=== PATIENT | female | born 1985 | race Caucasian/White ===

== ENCOUNTER 2018-01-10 19:57 | Emergency (ER) | payer SELFPAY ==
[2018-01-10 19:58] VITALS: BP 117/93; PULSE 91; RESP 16; TEMP 36.5; O2SAT 96; BMI 26.4
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
[2018-01-10 21:46] VITALS: BP 100/53; PULSE 73; RESP 18; O2SAT 99
[2018-01-10 22:49] VITALS: BP 95/51; PULSE 74; RESP 18; O2SAT 95
== END 2018-01-10 22:50 | disposition home or self-care (01) ==
PROVIDERS: Emergency Provider Emergency Medicine
DX: T40.1X1A Poisoning by heroin, accidental (unintentional), initial encounter (principal); Y92.810 Car as the place of occurrence of the external cause; Z72.0 Tobacco use
CPT/HCPCS: 99285

== ENCOUNTER 2018-06-04 17:42 | Emergency (ER) | payer MEDICAID, SELFPAY ==
[2018-06-04 17:44] VITALS: BP 112/63; PULSE 79; RESP 12; TEMP 35.9; O2SAT 100
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
[2018-06-04] MEDS: Naproxen 500 MG Tablet PO (18:16)
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
== END 2018-06-04 18:50 | disposition home or self-care (01) ==
PROVIDERS: Emergency Provider Emergency Medicine
DX: S16.1XXA Strain of muscle, fascia and tendon at neck level, initial encounter (principal); S80.02XA Contusion of left knee, initial encounter; S60.212A Contusion of left wrist, initial encounter; V89.2XXA Person injured in unspecified motor-vehicle accident, traffic, initial encounter; Y93.9 Activity, unspecified; Y92.9 Unspecified place or not applicable; Y99.9 Unspecified external cause status; Z72.0 Tobacco use
CPT/HCPCS: 73110; 73562; 99283

== ENCOUNTER 2021-01-27 16:56 | Inpatient (IN) | payer OTHER, SELFPAY ==
[2021-01-27 16:57] VITALS: BP 128/82; PULSE 72; RESP 18; TEMP 36.1; O2SAT 96; BMI 33.0
[2021-01-27 18:38] LABS: Absolute Neutrophil Count 3.7 X10^3/uL (2.0-7.7); Basophil# 0.02 X10^3/uL; Basophil% 0.3 % (0-1); Eosinophil# 0.03 X10^3/uL; Eosinophils% 0.5 % (0-5); Hematocrit 43.9 % (37-47); Hemoglobin 14.4 g/dL (12.0-15.0); Mean Corp Hgb Conc 32.8 g/dL (32-36); Mean Corpuscular Hgb 28.6 pg (27.0-32.0); Mean Corpuscular Volume 87.1 fL (81-99); Mean Platelet Vol. 9.2 fl (6.2-12.0); Monocyte# 0.43 X10^3/uL; Monocyte% 6.9 % (0-10); NRBC Flagged by Analyzer 0 % (0-5); Neutrophil # 3.74 X10^3/uL (2.7-7.7); Neutrophil % 59.8 % (47-70); Platelet Count 217 K/mm3 (150-450); RBC Distribution Width CV 13.6 % (11.6-14.6); RBC Distribution Width SD 43.4 fl (35.1-43.9); Red Blood Count 5.04 M/mm3 (4.2-5.4); White Blood Count 6.3 K/mm3 (4.4-11.0)
[2021-01-27 18:55] LABS: Anion Gap 2 (5-15); BUN 9 mg/dL (7-18); BUN/Creat Ratio 12.1 RATIO (10-20); Calcium,Total 8.7 mg/dL (8.5-10.1); Chloride 109 mmol/L (98-107); Creatinine, Serum 0.75 mg/dL (0.55-1.02); EST Glomerular Filtration Rate 94 mL/min (>60); Est Glom Filt Rate - Afr Amer 114 mL/min (>60); Estimated Creatinine Clearance 98.94 ml/min; Glucose 100 mg/dL (74-106); Potassium 3.6 mmol/L (3.5-5.1); Sodium Level 139 mmol/L (136-145)
--- NOTE | 2021-01-27 19:26 | ED.VIS.GI ---
HPI HPI - GI History of Present Illness Chief Complaint: Abd Pain Detail of Chief Complaint: Abdominal pain that started about 6 hours ago Informant: patient Abdominal Pain/Flank Pain Maximum Severity: 10/10 Narrative Narrative: To the emergency department complaint of abdominal pain that started 6 hours ago. Patient describes some nausea but no vomiting. She rates her pain a 10 out of 10 currently. Patient states that she was diagnosed with Covid 6 days ago because her 5-year-old tested positive so she had herself tested. Patient only started having symptoms for 5 days ago. She had been doing relatively well until today. Patient states that she started her menstrual period today with some spotting this morning. She typically does not have painful periods. No history of kidney stones. Patient's not had fever. She denies urinary symptoms. PFSH PFSH Medical History no medical history Home Medications naproxen 500 mg PO BID PRN #20 tab 06/04/18 [Rx Last Taken Unknown] etonogestrel [Nexplanon] 68 mg SUBDERMAL DAILY 01/27/21 [History Last Taken Unknown] Allergy/AdvReac Type Severity Reaction Status Date / Time No Known Allergies Allergy Verified 01/27/21 17:00 Social History Smoking Status: Never smoker ROS ROS ED Constitutional Constitutional ED: Reports systems reviewed and no addt'l complaints, except as documented; Denies body ache(s), change in weight or chills Eyes Eyes: Denies acute decrease in peripheral vision, change in vision, double vision or loss of vision ENT ENT ED: Reports none; Denies ear pain, lip swelling, loss taste/smell, neck pain, otalgia or sore throat Cardiovascular Cardiovascular: Reports none; Denies abdominal pain, chest pain with activity, leg edema, lightheadedness, palpitations, rapid heart rate or syncope Respiratory/Chest Respiratory/Chest: Reports none; Denies change in mental status, dry cough, dyspnea, hemoptysis, shortness of breath at rest or shortness of breath with exertion Gastrointestinal Gastrointestinal: Reports abdominal pain and nausea Genitourinary Genitourinary ED: Reports none; Denies abdominal discomfort, anuria, dysuria, genital pain or polyuria Musculoskeletal Musculoskeletal: Reports none; Denies arthralgias, back pain, difficulty walking, extremity pain, muscle weakness or myalgias Integumentary Reports none; Denies abscess or rash Neurologic Neurologic: Reports none; Denies abnormal gait, confusion, focal weakness, frequent falls, headache(s), loss of vision, numbness, paresthesias, radicular pain, vertigo or weakness Psychiatric Psychiatric: Reports systems reviewed and no addt'l complaints, except as documented and none; Denies behavioral changes, confusion, difficulty concentrating, hallucinations, suicidal ideation, tactile hallucinations or visual hallucinations Endocrine Endocrinology: Denies none, cold intolerance, excessive sweating, fatigue or heat intolerance Hematologic/Lymphatic Hematologic/Lymphatic: Reports none; Denies anemia, easy bleeding or easy bruising Allergic/Immunologic Allergic/Immunologic ED: Denies as per HPI, none, lip swelling, mouth swelling, throat swelling, tongue swelling or hives EXAM Physical Exam Const Vital Signs: 01/27/21 16:57 01/27/21 21:53 Temperature 97.0 F L Temperature Source Temporal Pulse Rate 72 Respiratory Rate 18 Blood Pressure 128/82 H Blood Pressure Mean 97 Pulse Ox 96 97 Oxygen Delivery Method Room Air Room Air Positive well nourished and well developed General Appearance ED: well developed and NAD HEENT Reports TM's clear and moist mucous membranes normocephalic and atraumatic; Negative for trauma or tenderness Tympanic Membrane ED: Yes TM's clear Eyes PERRL and EOMs intact bilaterally General Eye ED: Negative for pale conjunctiva or scleral icterus Neck no lymphadenopathy, supple and no JVD General: Negative for tenderness Chest Wall inspection of chest normal and palpation of chest normal Chest: Negative for tenderness Resp normal respiratory effort and clear to auscultation bilaterally Effort and Inspection: Negative for respiratory distress or pain with movement Auscultation: Negative for rhonchi, wheezes or diminished lung sounds Cardio regular rate, regular rhythm, S1 normal heart sound, S2 normal heart sound and no murmurs Peripheral Pulses: pulses 2+ throughout GI normal to inspection, nondistended, normoactive bowel sounds, soft to palpation, non-tender, non-distended and no masses GI Narrative: Patient has tenderness palpation of the right lower quadrant with some guarding. There is no rebound, rigidity, or peritoneal signs. Patient also with some mild tenderness over the epigastric region. Palpation: tender Back/Spine no CVA tenderness and no thoracic nor lumbar tenderness Extremity normal to inspection General Extremety ED: Negative for edema General Extremity: Negative for edema Neuro oriented x3, CN's II-XII intact bilaterally, no sensory deficits noted and gait normal Sensorium / Orientation: awake, alert, oriented to person, oriented to place and oriented to time Motor Exam: strength 5/5 throughout and strength abnormal Psych mental status grossly normal Skin no rashes or lesions noted and no wounds MDM MDM MDM Narrative Medical decision making narrative: Patient was medicated with morphine and Zofran on arrival. Patient had an IV line established and was given normal saline. Results case with patient. Also discussed case with general surgeon on-call Dr. Blanco. Will discuss case with hospitalist who will evaluate patient for admission. There is concern for inflammatory bowel disease with thickening of the cecum and inflammatory changes noted. Patient also has a right adnexal 4 cm cyst. Lab Data Attestation: I reviewed the patient's lab results. Labs: Laboratory Results - last 24 hr 01/27/21 01/27/21 01/27/21 18:25 18:25 19:55 WBC 6.3 RBC 5.04 Hgb 14.4 Hct 43.9 MCV 87.1 MCH 28.6 MCHC 32.8 RDW Std Deviation 43.4 RDW Coeff of Davis 13.6 Plt Count 217 MPV 9.2 Immature Gran % (Auto) 0.500 Neut % (Auto) 59.8 Lymph % (Auto) 32.0 Charles % (Auto) 6.9 Eos % (Auto) 0.5 Baso % (Auto) 0.3 Absolute Neuts (auto) 3.7 Absolute Lymphs (auto) 2.00 Nucleated RBC % 0 Sodium 139 Potassium 3.6 Chloride 109 H Carbon Dioxide 28.0 Anion Gap 2 L BUN 9 Creatinine 0.75 Estim Creat Clear Calc 98.94 Est GFR (MDRD) Af Amer 114 Est GFR (MDRD) Non-Af 94 BUN/Creatinine Ratio 12.1 Glucose 100 Lactic Acid Calcium 8.7 Total Bilirubin 0.40 Direct Bilirubin 0.12 AST 26 ALT 50 Alkaline Phosphatase 106 Total Protein 7.2 Albumin 3.5 Globulin 3.7 Serum , Qual 01/27/21 01/27/21 19:55 19:55 WBC RBC Hgb Hct MCV MCH MCHC RDW Std Deviation RDW Coeff of Davis Plt Count MPV Immature Gran % (Auto) Neut % (Auto) Lymph % (Auto) Charles % (Auto) Eos % (Auto) Baso % (Auto) Absolute Neuts (auto) Absolute Lymphs (auto) Nucleated RBC % Sodium Potassium Chloride Carbon Dioxide Anion Gap BUN Creatinine Estim Creat Clear Calc Est GFR (MDRD) Af Amer Est GFR (MDRD) Non-Af BUN/Creatinine Ratio Glucose Lactic Acid 0.6 Calcium Total Bilirubin Direct Bilirubin AST ALT Alkaline Phosphatase Total Protein Albumin Globulin Serum , Qual NEGATIVE Radiography Diagnostic Testing: Radiology Impression Abdomen/Pelvis CT 01/27/21 21:10 IMPRESSION: Diffuse wall thickening of the terminal ileum and proximal cecum with mild associated stranding may represent an inflammatory process. 4 cm right adnexal cyst. Normal appendix. Hypoechoic focus left liver is incompletely characterized. Consider follow-up liver ultrasound. Electronically Signed: Elías Perry MD at 21:53 EDT Tel , Service support , Discharge Plan Triage Chief Complaint: Abd Pain ED Provider: Kulwinder Anaya Dx/Rx/DC Orders Clinical Impression: Intractable abdominal pain, Ovarian cyst, Bowel disease, inflammatory Prescriptions: No Action naproxen 500 MG tablet 500 mg PO BID PRN Qty: 20 RF: 0 Nexplanon 68 mg Implant 68 mg SUBDERMAL DAILY RF: 0 Primary Care Provider: Care Physician,No Primary Referrals: Care Physician,No Primary [Primary Care Provider] - Disposition Disposition: Acute Care [facility]
[2021-01-27] MEDS: Morphine 4 MG/ML Syringe IV ×2 (19:36→23:29)
[2021-01-27] MEDS: Ondansetron 4 MG/2 ML Vial IV (19:36)
[2021-01-27 20:26] LABS: AST(SGOT) 26 U/L (15-37); Alanine Aminotransfer ALT/SGPT 50 U/L (13-56); Albumin, Serum 3.5 g/dL (3.2-5.0); Alkaline Phosphatase 106 U/L (45-117); Bilirubin, Direct 0.12 mg/dL (0.00-0.30); Globulin 3.7 g/dL (2.2-4.2); Protein, Total 7.2 g/dL (6.4-8.2)
[2021-01-27 20:28] LABS: Internal QC Validated? YES +Cl - CLEAR BKGD; Pregnancy, Serum, hCG Quali. NEGATIVE Negative
[2021-01-27 21:02] LABS: Lactic Acid 0.6 mmol/L (0.4-1.9)
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
[2021-01-27 21:53] VITALS: O2SAT 97
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
[2021-01-27 23:38] VITALS: BP 138/71; PULSE 74; RESP 16; TEMP 36.9; O2SAT 98
[2021-01-28] VITALS (8 sets, daily range): BP systolic 122–141; BP diastolic 51–77; PULSE 55–72; RESP 14–20; TEMP 36.6–36.9; O2SAT 94–98; BMI 35.2
[2021-01-28 00:10] LABS: BNP,B-Type NATRIURETIC PEPTIDE 7.3 pg/mL (0-100)
[2021-01-28 00:13] LABS: CRP 6.42 mg/L (0.0-3.0); Ferritin 39 ng/mL (8-252); LDH 194 U/L (84-246)
[2021-01-28 00:28] LABS: Procalcitonin < 0.04 ng/mL (0.00-0.09)
[2021-01-28] MEDS: proCHLORPERazine 10 MG/2 ML Vial 5 MG IV (00:39)
[2021-01-28] MEDS: 0.9% Normal Saline 1,000 ML 125 ML IV ×2 (00:39→08:52)
[2021-01-28] MEDS: 0.9% Saline Lock 10 ML Syringe IV (00:39)
[2021-01-28 01:08] LABS: D-Dimer Quantitative (DVT/PE) < 0.27 FEU/ug/m (0.27-0.49)
--- NOTE | 2021-01-28 05:55 | US_ITS ---
STUDY: ABDOMINAL ULTRASOUND - RIGHT UPPER QUADRANT REASON FOR VISIT: Female, 35 years old Incidental hypoechoic focus left liver -- pt NPO - 11am scan time TECHNIQUE: Ultrasound evaluation of the right upper quadrant was performed with real-time and static lopez-scale imaging. TECHNICAL QUALITY: Adequate. COMPARISON: Comparison is made with prior CT scan of the abdomen dated 01/27/2021. FINDINGS: Liver: The liver measures 17.2 cm. There is increased echogenicity consistent with fatty infiltration. The bile ducts are within normal limits. There is hepatic color flow. The direction of portal flow is hepatopetal. There is a 1 cm x 1.3 cm x 1.2 cm slightly echogenic nodule in the left lower liver suggestive of a small hemangioma. Gallbladder: Normal distended gallbladder. The gallbladder wall measures 2.8 mm. There is a negative sonographic Watts''s sign. There is no pericholecystic fluid. There are no gallstones. Common Bile Duct (C.B.D.): The common bile duct measures 2.6 mm. Pancreas: Normal size of the head, body and tail of the pancreas. There is normal echogenicity of the pancreas. There is no demonstrated pancreatic mass or cyst. Right Kidney: Normal size of the right kidney. The right kidney measures 11.6 cm x 6.4 cm x 6.3 cm. Normal renal cortex. The right cortex measures 1.3 cm. There is no demonstrated renal mass or cyst. There is no right hydronephrosis. US/Liver IMPRESSION: Fatty eventration of the liver. Findings suggestive of a 1 cm x 1.3 cm x 1.2 cm hemangioma in the left lobe of the liver. Electronically Signed: Didier Parada MD at 14:58 EDT , Service support ,
[2021-01-28 06:59] LABS: Absolute Lymphocyte Count 0.96 X10^3/uL (0.83-4.51); Absolute Neutrophil Count 4.6 X10^3/uL (2.0-7.7); Basophil# 0.02 X10^3/uL; Basophil% 0.3 % (0-1); Hematocrit 43.5 % (37-47); Hemoglobin 14.3 g/dL (12.0-15.0); Lymphocyte # 0.96 X10^3/ul (0.83-4.51); Lymphocyte % 16.7 % (19-41); Mean Corp Hgb Conc 32.9 g/dL (32-36); Mean Corpuscular Hgb 28.4 pg (27.0-32.0); Mean Corpuscular Volume 86.5 fL (81-99); Mean Platelet Vol. 9.7 fl (6.2-12.0); Monocyte% 1.7 % (0-10); NRBC Flagged by Analyzer 0 % (0-5); Neutrophil # 4.64 X10^3/uL (2.7-7.7); Platelet Count 207 K/mm3 (150-450); RBC Distribution Width CV 13.4 % (11.6-14.6); RBC Distribution Width SD 41.9 fl (35.1-43.9); Red Blood Count 5.03 M/mm3 (4.2-5.4); White Blood Count 5.7 K/mm3 (4.4-11.0)
[2021-01-28 07:33] LABS: ALB/GLOB Ratio 0.9 RATIO (0.9-2.4); AST(SGOT) 24 U/L (15-37); Alanine Aminotransfer ALT/SGPT 47 U/L (13-56); Albumin, Serum 3.3 g/dL (3.2-5.0); Alkaline Phosphatase 106 U/L (45-117); Anion Gap 4 (5-15); BUN 7 mg/dL (7-18); BUN/Creat Ratio 11.4 RATIO (10-20); Calcium,Total 8.7 mg/dL (8.5-10.1); Chloride 109 mmol/L (98-107); Creatinine, Serum 0.61 mg/dL (0.55-1.02); EST Glomerular Filtration Rate 118 mL/min (>60); Est Glom Filt Rate - Afr Amer 143 mL/min (>60); Estimated Creatinine Clearance 121.65 ml/min; Globulin 3.8 g/dL (2.2-4.2); Glucose 149 mg/dL (74-106); Potassium 4.1 mmol/L (3.5-5.1); Protein, Total 7.1 g/dL (6.4-8.2); Sodium Level 137 mmol/L (136-145)
[2021-01-28] MEDS: Enoxaparin 30 MG/0.3 ML Syringe SC (08:54)
[2021-01-28] MEDS: Famotidine 20 MG Tablet PO (08:54)
--- NOTE | 2021-01-28 10:04 | CASEMGMT ---
OBDULIO MATTHEWS Assessment: Face to Face with pt for initial transition planning/care coordination assessment. OBDULIO MATTHEWS introduced self and role at [facility], pt voices understanding and consents to assessment. Pt is A/O x4 and answers all questions appropriately at this time. Pt lying in bed on RA in no distress. Care providers, pharmacy, and demographics verified/updated. Admitting Dx: COVID, Intractable abd pain PCP: Pt denies having a PCP. Provided pt with a healthcare directory of local physicians. Specialists: Pt denies. Preferred Pharmacy: [facility] Gurpreet Insurance: [employer] Prescription Benefit: yes LW/HPOA: Pt denies having a LW/DPOA and denies need for info regarding AD. LNOK: Yana Baig, mother; Atul Baig, father Living Arrangements: Pt lives with 5 year old child in a single story house with 2 steps to enter. Pt reports being I in ADL's and denies concerns at home. Transportation: Pt drives self and denies concerns with transportation. DME/HHC: Pt denies having any DME in the home and no hx of HHC. Pt states she was tested first for COVID at [facility]. Pt states her boris father is staying with the child in her home while she is in the hospital. Pt has called [employer] yesterday and was delivered food. Pt states she is set with groceries and supplies for now. 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 She has a history of substance abuse but is now 4 years clean. Pt states she uses medical cannibus. She drinks 4-5 shots of liquor on the weekends. Pt denies cigarette use, street drugs or illegal drugs. Pt states no concerns with going home at time of dc. Pt states no further concerns/needs. CM to follow. Advised pt to ask CM if any further question/concerns/needs arise, voices understanding. Pt Goal: Home Plan: Home
--- NOTE | 2021-01-28 12:09 | CON.PCM.SX_ITS ---
Assessment & Plan Assessment/Plan (1) Ovarian cyst: QUALIFIERS: Laterality: right Qualified Code(s): N83.201 - Unspecified ovarian cyst, right side PLAN: Patient has just started her menstrual cycle and her exam is most consistent with pain originating from this CT finding rather than the possible thickening of the terminal ileum and proximal cecum. In review of the patient's CT scan this latter region actually lies deep to her periumbilical region and not in the right lower quadrant as would be normally expected. This is because a significant portion of her small bowel has flopped over her ascending colon. Given both the temporal and anatomical correlations I suspect her pain is from this area. I do not see need for an inpatient consult of gynecology but have strongly recommended patient follow-up with her propagator when she is out of the hospital for this issue. (2) Bowel wall thickening: PLAN: The bowel wall thickening colon on CT seems to be more product of underfilling of the small intestine at this location. The contrast did reach the small bowel but not to the level of the terminal ileum. Based on exam I am not convinced that this is the source of the patient's abdominal pains. Furthermore, the patient does not describe any GI symptoms that would be associated with such a radiographic finding. Therefore, in the absence of any other indication to keep the patient n.p.o. this afternoon I would like to begin a diet challenge. Additionally, given the lower suspicion for an inflammatory bowel process would stop all steroid therapy. (3) Intractable abdominal pain: PLAN: Patient's abdominal pain has abated and she now has some tenderness with palpation of the right lower quadrant over the area where the right adnexal cyst would reside. We will follow up patient's tolerance of the diet this afternoon. HPI Consult Data Date of Consult: 01/28/21 HPI Narrative HPI Narrative: LEYDA BAIG, is a 35 F who presents to [facility] with complaints of sudden?onset abdominal pain yesterday at approximately 1400. She denied any associated nausea or vomiting. Her bowel habits have been normal including a normal bowel movement yesterday. He reports that she was diagnosed with Covid in the last 1 week and also began her menstrual cycle over the last 1 day. Her ED work-up was notable for chemistries showing relatively normal CBC but CT imaging that showed evidence of possible thickening of the terminal ileum and cecum. There is also a 4 cm right adnexal cyst. Patient states that her symptoms are much improved this morning and she is quite hungry. She has some residual soreness on her right but the pain from yesterday has resolved. Historically Ms. Sheets does not have pain with menstruation. She does state that she has experienced some bleeding following intercourse and questions whether this may be related to her ovarian cyst. She states that since the delivery of her last child she has not followed routinely with her propagator but made occasional nurse visits. From a GI perspective, Mrs. Baig denies any personal of GI malignancies or GI diagnoses including inflammatory bowel disease but from a familial perspective she does relate that her father has been evaluated for rectal bleeding and has required 4 colonoscopies in the last 4 months. [facility] Medical History (Updated 01/28/21 @ 12:[address] Kumar Blanco MD) Alcohol consumption binge drinking Anxiety Depression Marijuana abuse PTSD (post-traumatic stress disorder) Medical History no medical history Home Medications etonogestrel [Nexplanon] 68 mg SUBDERMAL . 01/27/21 [History Last Taken Unknown] Allergy/AdvReac Type Severity Reaction Status Date / Time No Known Allergies Allergy Verified 01/27/21 17:00 Family History no significant family his Surgical History (Updated 01/28/21 @ 00:[address] Pattie Coe MD) No significant past surgical history Social History (Updated 01/28/21 @ 00:[address] Pattie Coe MD) household members: children Smoking Status: Never smoker alcohol intake: current alcohol intake frequency: a few times a week substance use type: marijuana Physical Exam Const General Appearance: cooperative and comfortable Resp normal respiratory effort GI soft to palpation Inspection: Negative for visible herniation Palpation: soft and tender RLQ (No rebound tenderness) Lab / Micro Data Result Diagrams: 01/28/21 06:35 01/28/21 06:35 Labs: Laboratory Results - last 24 hr 01/27/21 18:25: WBC 6.3, RBC 5.04, Hgb 14.4, Hct 43.9, MCV 87.1, MCH 28.6, MCHC 32.8, RDW Std Deviation 43.4, RDW Coeff of Davis 13.6, Plt Count 217, MPV 9.2, Immature Gran % (Auto) 0.500, Neut % (Auto) 59.8, Lymph % (Auto) 32.0, [place] % (Auto) 6.9, Eos % (Auto) 0.5, Baso % (Auto) 0.3, Absolute Neuts (auto) 3.7, Absolute Lymphs (auto) 2.00, Nucleated RBC % 0 01/27/21 18:25: Sodium 139, Potassium 3.6, Chloride 109 H, Carbon Dioxide 28.0, Anion Gap 2 L, BUN 9, Creatinine 0.75, Estim Creat Clear Calc 98.94, Est GFR (MDRD) Af Amer 114, Est GFR (MDRD) Non-Af 94, BUN/Creatinine Ratio 12.1, Glucose 100, Calcium 8.7 01/27/21 18:25: Ferritin 39, Lactate Dehydrogenase 194, C-React Prot Ext Range 6.42 H 01/27/21 18:25: B-Natriuretic Peptide 7.3 01/27/21 18:25: Procalcitonin < 0.04 01/27/21 19:55: Total Bilirubin 0.40, Direct Bilirubin 0.12, AST 26, ALT 50, Alkaline Phosphatase 106, Total Protein 7.2, Albumin 3.5, Globulin 3.7 01/27/21 19:55: Lactic Acid 0.6 01/27/21 19:55: Serum , Qual NEGATIVE 01/27/21 23:50: D-Dimer Quant (PE/DVT) < 0.27 L 01/28/21 06:35: WBC 5.7, RBC 5.03, Hgb 14.3, Hct 43.5, MCV 86.5, MCH 28.4, MCHC 32.9, RDW Std Deviation 41.9, RDW Coeff of Davis 13.4, Plt Count 207, MPV 9.7, Immature Gran % (Auto) 0.300, Neut % (Auto) 81.0 H, Lymph % (Auto) 16.7 L, [place] % (Auto) 1.7, Eos % (Auto) 0.0, Baso % (Auto) 0.3, Absolute Neuts (auto) 4.6, Absolute Lymphs (auto) 0.96, Nucleated RBC % 0 01/28/21 06:35: Sodium 137, Potassium 4.1, Chloride 109 H, Carbon Dioxide 24.0, Anion Gap 4 L, BUN 7, Creatinine 0.61, Estim Creat Clear Calc 121.65, Est GFR (MDRD) Af Amer 143, Est GFR (MDRD) Non-Af 118, BUN/Creatinine Ratio 11.4, Glucose 149 H, Calcium 8.7, Total Bilirubin 0.20, AST 24, ALT 47, Alkaline Phosphatase 106, Total Protein 7.1, Albumin 3.3, Globulin 3.8, Albumin/Globulin Ratio 0.9 Radiology Impression Abdomen/Pelvis CT 01/27/21 21:10 IMPRESSION: Diffuse wall thickening of the terminal ileum and proximal cecum with mild associated stranding may represent an inflammatory process. 4 cm right adnexal cyst. Normal appendix. Hypoechoic focus left liver is incompletely characterized. Consider follow-up liver ultrasound. Electronically Signed: Elías Perry MD at 21:53 EDT Tel , Service support , Charges/Coding Visit Charges Inpatient E&M: 96676 Init Hosp L2
[2021-01-28] MEDS: Acetaminophen 325 MG Tablet 650 MG PO (12:35)
--- NOTE | 2021-01-28 16:28 | DCINST_ITS ---
Discharge Instructions Diet Discharge Diet: No restrictions Activity Discharge Activity: Return to Normal Activity Follow Up Care Test Results: Test results from this visit will be discussed in further detail at your follow-up appointment, if applicable. Discharge Plan Admission Admit Date/Time: 01/27/21 23:15 Primary Reason for Your Visit: Abdominal pain, Acute COVID-19 infection Attending Provider: Yesika Johnson Primary Care Provider: Care Physician,No Primary Consulting Providers: Kumar Blanco Instructions Additional Instructions / Restrictions: Continue to use your incentive spirometer. Continue to keep yourself hydrated. Follow-up with your warehouse pricing and inventory clerk within a month. Discharge Orders/Prescriptions Prescriptions: Continued Nexplanon 68 mg Implant 68 mg SUBDERMAL . RF: 0 Referrals / Follow Up: Care Physician,No Primary [Primary Care Provider] - Within 2 Weeks Disposition Disposition (needs filled in before D/C Order can be placed): Home, Self Care
--- NOTE | 2021-01-28 16:32 | PCM.DC.SUM ---
Providers Date of Admission: 01/27/21 Date of Discharge: 01/28/21 Primary Care Physician: Erin Primary Care Phys Consultations 01/28/21 00:00 Consult: General Surgery Routine Consulting Provider: Kumar Blanco Reason for Consult: Intractable abdominal pain, ? IBD with COVID EMERGENT Consult: No MD Notified: Yes Date Notified: 01/27/21 Time Notified: 23:31 Method of Notification: consulted per ED. Reason For Visit: COVID, INTRACTABLE ABDOMINAL PAIN Diagnosis Discharge Diagnosis (1) Ovarian cyst: Status: Acute Code(s): N83.209 - Unspecified ovarian cyst, unspecified side Qualifiers: Laterality: right Qualified Code(s): N83.201 - Unspecified ovarian cyst, right side (2) Bowel wall thickening: Status: Acute Code(s): K63.9 - Disease of intestine, unspecified (3) Intractable abdominal pain: Status: Acute Code(s): R10.9 - Unspecified abdominal pain Medications at Discharge Home Medications Nexplanon 68 mg SUBDERMAL . 01/27/21 Hospital Course Operations None Procedures None Summary of Care Provided Minutes Spent on Discharge: 45 Hospital Course: 35-year-old with past medical history of anxiety/depression, who comes in with a recent Covid 19 infection, diagnosed 6 days prior to admission. Patient stated that she received the [employer] Covid vaccine in November 2020. She was at the [facility] about a week prior. 2 of her children have Covid. She came in with intractable abdominal pain. She admitted to some cough, congestion, headaches. Abdominal pain was worse in the periumbilical in the right upper quadrant. Her WBC count was 6.3. CT of abdomen pelvis showed diffuse thickening of the terminal ileum and proximal cecum with mild stranding, 4 cm right adnexal cyst. There was also a hypoechoic focus in the left liver. Patient had just started her menses. She was admitted to the MedSur floor. General surgery was consulted from the ED. Patient continued to be without oxygen throughout his hospital stay. Ultrasound of the liver showed a hemangioma in the left lobe. General surgery reviewed patient and did not think the patient had ileitis or colitis. It was felt that the bowel wall thickening seen on CT was more of an underfilling of the small intestine 9 as the contrast with the small bowel but not to the level of the terminal ileum.Her abdominal pain was felt to be secondary to her gynecological symptoms. Patient was tried on a regular diet and she was able to tolerate. She was discharged home to complete her quarantine. Should follow-up with her salt cutter within 2 to 4 weeks in the outpatient. Physical Exam Narrative Physical exam: General: Alert, Oriented x3, Cooperative, No apparent distress, Well developed HEENT: Atraumatic Oral: Moist Mucosa Neck: Supple Lungs: Clear to auscultation Cardiovascular: HS I+II, regular, no murmurs Abdomen: Bowel Sounds Present, Soft, Non Tender Extremities: No edema Weight / BMI Weight Weight: 99.1 kg Body Mass Index (BMI) 35.2 ABG / Lab / Microbiology Data Result Diagrams: 01/28/21 06:35 01/28/21 06:35 Laboratory: Laboratory Results - last 24 hr 01/27/21 18:25: WBC 6.3, RBC 5.04, Hgb 14.4, Hct 43.9, MCV 87.1, MCH 28.6, MCHC 32.8, RDW Std Deviation 43.4, RDW Coeff of Davis 13.6, Plt Count 217, MPV 9.2, Immature Gran % (Auto) 0.500, Neut % (Auto) 59.8, Lymph % (Auto) 32.0, [place] % (Auto) 6.9, Eos % (Auto) 0.5, Baso % (Auto) 0.3, Absolute Neuts (auto) 3.7, Absolute Lymphs (auto) 2.00, Nucleated RBC % 0 01/27/21 18:25: Sodium 139, Potassium 3.6, Chloride 109 H, Carbon Dioxide 28.0, Anion Gap 2 L, BUN 9, Creatinine 0.75, Estim Creat Clear Calc 98.94, Est GFR (MDRD) Af Amer 114, Est GFR (MDRD) Non-Af 94, BUN/Creatinine Ratio 12.1, Glucose 100, Calcium 8.7 01/27/21 18:25: Ferritin 39, Lactate Dehydrogenase 194, C-React Prot Ext Range 6.42 H 01/27/21 18:25: B-Natriuretic Peptide 7.3 01/27/21 18:25: Procalcitonin < 0.04 01/27/21 19:55: Total Bilirubin 0.40, Direct Bilirubin 0.12, AST 26, ALT 50, Alkaline Phosphatase 106, Total Protein 7.2, Albumin 3.5, Globulin 3.7 01/27/21 19:55: Lactic Acid 0.6 01/27/21 19:55: Serum , Qual NEGATIVE 01/27/21 23:50: D-Dimer Quant (PE/DVT) < 0.27 L 01/28/21 06:35: WBC 5.7, RBC 5.03, Hgb 14.3, Hct 43.5, MCV 86.5, MCH 28.4, MCHC 32.9, RDW Std Deviation 41.9, RDW Coeff of Davis 13.4, Plt Count 207, MPV 9.7, Immature Gran % (Auto) 0.300, Neut % (Auto) 81.0 H, Lymph % (Auto) 16.7 L, [place] % (Auto) 1.7, Eos % (Auto) 0.0, Baso % (Auto) 0.3, Absolute Neuts (auto) 4.6, Absolute Lymphs (auto) 0.96, Nucleated RBC % 0 01/28/21 06:35: Sodium 137, Potassium 4.1, Chloride 109 H, Carbon Dioxide 24.0, Anion Gap 4 L, BUN 7, Creatinine 0.61, Estim Creat Clear Calc 121.65, Est GFR (MDRD) Af Amer 143, Est GFR (MDRD) Non-Af 118, BUN/Creatinine Ratio 11.4, Glucose 149 H, Calcium 8.7, Total Bilirubin 0.20, AST 24, ALT 47, Alkaline Phosphatase 106, Total Protein 7.1, Albumin 3.3, Globulin 3.8, Albumin/Globulin Ratio 0.9 Radiography Diagnostic Testing: Radiology Impression Abdomen/Pelvis CT 01/27/21 21:10 IMPRESSION: Diffuse wall thickening of the terminal ileum and proximal cecum with mild associated stranding may represent an inflammatory process. 4 cm right adnexal cyst. Normal appendix. Hypoechoic focus left liver is incompletely characterized. Consider follow-up liver ultrasound. Electronically Signed: Elías Perry MD at 21:53 EDT Tel , Service support , Liver Ultrasound 01/28/21 05:55 IMPRESSION: Fatty eventration of the liver. Findings suggestive of a 1 cm x 1.3 cm x 1.2 cm hemangioma in the left lobe of the liver. Electronically Signed: Didier Parada MD at 14:58 EDT , Service support , D/C Instructions Discharge Diet: No restrictions Meaningful Use Info Meaningful Use Diagnoses (Choose all that apply): None applicable Discharge Plan Admission Admit Date/Time: 01/27/21 23:15 Primary Reason for Your Visit: Abdominal pain, Acute COVID-19 infection Attending Provider: Yesika Johnson Primary Care Provider: Care Physician,No Primary Consulting Providers: Kumar Blanco Instructions Additional Instructions / Restrictions: Continue to use your incentive spirometer. Continue to keep yourself hydrated. Follow-up with your salt cutter within a month. Discharge Orders/Prescriptions Prescriptions: Continued Nexplanon 68 mg Implant 68 mg SUBDERMAL . RF: 0 Referrals / Follow Up: Care Physician,No Primary [Primary Care Provider] - Within 2 Weeks Disposition Disposition (needs filled in before D/C Order can be placed): Home, Self Care Charges/Coding Visit Charges Inpatient E&M: 57203 Disch Hosp
--- NOTE | 2021-01-29 15:23 | CASEMGMT ---
OBDULIO MATTHEWS Discharge Follow Up Phone Call: JENNI: 4 Strata:1 Call Date: 01/29/21 Discharge Date: 01/28/21 Time of Call:1520 Duration:3 min Admitting Dx:junaid pain, COVID OBDULIO MATTHEWS completed follow up phone call after recent hospitalization. Pt states she is doing well. She states her breathing is fine and she is quarantining. Pt states she has had diarrhea all day and feels her stomach is sensitive. Asked pt if she has chosen a PCP from pamphlet. She states that her stepmom has a recommendation for her for PCP. She will follow up with that physician. Pt denies further questions or concerns regarding dc instructions.
== END 2021-01-28 18:45 | disposition home or self-care (01) | DRG 760 ==
LOC: ED 23:06 → MS3 01-28 06:50
PROVIDERS: Admitting Provider Family Medicine; Emergency Provider Emergency Medicine; Visit Provider Internal Medicine
DX: N83.201 Unspecified ovarian cyst, right side (principal); U07.1 COVID-19; K63.89 Other specified diseases of intestine; F43.10 Post-traumatic stress disorder, unspecified; F32.9 Major depressive disorder, single episode, unspecified; F41.9 Anxiety disorder, unspecified; F12.10 Cannabis abuse, uncomplicated; E66.9 Obesity, unspecified; Z68.33 Body mass index [BMI] 33.0-33.9, adult
CPT/HCPCS: 36415; 74177; 76705; 80048; 80053; 80076; 82728; 83605; 83615; 83880; 84145; 84703; 85025; 85379; 86140; 99251; 99284; J7030; Q9967; A4216; G0463; J2405

== ENCOUNTER 2021-03-29 12:59 | Emergency (ER) | payer OTHER, SELFPAY ==
[2021-03-29 13:00] VITALS: BP 146/101; PULSE 124; RESP 16; TEMP 36.6; O2SAT 100; BMI 34.5
--- NOTE | 2021-03-29 14:00 | ED.VIS.DENTA ---
HPI History of Present Illness Chief Complaint: Dental Informant: patient Onset/Context/Timing Onset: Days (2-3) Context: Gradual Onset Timing: Continuous Quality: Throbbing Location: Left mandibular tooth Current Severity: Severe Maximum Severity: Severe Worsened by: Eating, touching Relieved by: - (Nothing but has not tried anything) Associated Symptoms Assocated Symptom - Dental: Negative for fever, jaw swelling or face swelling Narrative Narrative: Patient states she cracked a left mandibular tooth about a month ago, started hurting 2 or 3 days ago and after lunch today it has become severe. No fevers, discharge or bleeding in her mouth, swelling. [facility] Medical History Alcohol consumption binge drinking Anxiety Anxiety Depression Herpes Marijuana abuse Orthostatic hypotension PTSD (post-traumatic stress disorder) Home Medications Nexplanon 68 mg SUBDERMAL . 01/27/21 [History Last Taken Unknown] escitalopram oxalate 10 mg tablet 10 mg PO DAILY #30 tab 02/19/21 [Rx Last Taken Unknown] medical canabis PO 02/19/21 [History Last Taken Unknown] amoxicillin-pot clavulanate 875 mg PO Q12H #20 tablet 03/29/21 [Rx Last Taken Unknown] hydrocodone-acetaminophen 1 tab PO Q4H PRN PRN 2 Days #10 tablet 03/29/21 [Rx Last Taken Unknown] Allergy/AdvReac Type Severity Reaction Status Date / Time No Known Allergies Allergy Verified 03/29/21 13:01 Family History (Updated 02/19/21 @ 10:33 by Summer Cope) Father Anxiety Surgical History No significant past surgical history Social History household members: children Smoking Status: Never smoker alcohol intake: current alcohol intake frequency: a few times a week substance use type: marijuana what type of physical activity do you participate in: none ROS ROS ED Constitutional Constitutional ED: Denies chills or fever(s) Eyes Eyes: Denies change in vision or double vision ENT ENT ED: Reports dental pain; Denies sinus pain or throat swelling Cardiovascular Cardiovascular: Denies chest pain or palpitations Respiratory/Chest Respiratory/Chest: Denies cough or dyspnea Integumentary Denies abscess or rash Neurologic Neurologic: Denies headache(s), paresthesias or weakness EXAM Physical Exam Const Vital Signs: 03/29/21 13:00 Temperature 97.8 F Temperature Source Temporal Pulse Rate 124 H Respiratory Rate 16 Blood Pressure 146/101 H Blood Pressure Mean 116 Pulse Ox 100 Oxygen Delivery Method Room Air Positive well nourished and well developed General Appearance ED: well developed and NAD HEENT HEENT Narrative: Extremely tender tooth #19 or 20, difficult to tell exactly which one due to teeth that are already missing. No abscess. No trismus. There is some decay versus a fracture on the anterior exterior aspect of the tooth but there was no blood visible, nor gingival bleeding/swelling/inflammation. Face and Sinus: sinuses nontender Throat: posterior oropharynx normal Eyes PERRL and EOMs intact bilaterally Neck no lymphadenopathy and supple Resp normal respiratory effort Neuro oriented x3 and CN's II-XII intact bilaterally Sensorium / Orientation: alert Gait (Neuro): normal gait Psych mental status grossly normal and thought process normal Skin no rashes or lesions noted and no wounds MDM MDM MDM Narrative Medical decision making narrative: Patient is very anxious and appearing to be in discomfort. I offered a dental block, however she would prefer to just have the pain medication. She was given some Twining prior to discharge with a prescription for that and some amoxicillin advised to follow-up with a dentist soon as possible and given a dental resource list if she needs other options. Discharge Plan Triage Chief Complaint: Dental ED Provider: Maurizio Aguilera Dx/Rx/DC Orders Clinical Impression: Odontalgia, Dental decay Instructions: ED Dental Pain Prescriptions: New hydrocodone-acetaminophen [hydrocodone-acetaminophen] 1 TABLET tablet 1 tab PO Q4H PRN PRN (Reason: Pain) 2 Days Qty: 10 RF: 0 amoxicillin-pot clavulanate [amoxicillin-pot clavulanate] 875 MG tablet 875 mg PO Q12H Qty: 20 RF: 0 No Action medical canabis PO RF: 0 escitalopram oxalate [Lexapro] 10 mg tablet 10 mg PO DAILY Qty: 30 RF: 1 Nexplanon 68 mg Implant 68 mg SUBDERMAL . RF: 0 Primary Care Provider: Benigno Lord NP Referrals: Benigno Lord NP, TABLE CUT OFF SAW OPERATOR-C [Primary Care Provider] - Dentist,Your [STAFF PHYSICIAN] - As soon as possible (See attached resource list if you need other options) Disposition Disposition: Home, Self Care
[2021-03-29] MEDS: HYDROcodone Bitartrate/Apap 5/325 Tablet PO (14:13)
[2021-03-29] MEDS: Naproxen 250 MG Tablet 500 MG PO (14:13)
== END 2021-03-29 14:17 | disposition home or self-care (01) ==
PROVIDERS: Emergency Provider Emergency Medicine; PCP Nurse Practitioner Family
DX: K08.89 Other specified disorders of teeth and supporting structures (principal); K02.9 Dental caries, unspecified; F12.10 Cannabis abuse, uncomplicated; F43.10 Post-traumatic stress disorder, unspecified; F32.A Depression, unspecified; Z79.899 Other long term (current) drug therapy
CPT/HCPCS: 99283

== ENCOUNTER → 2022-03-18 | Outpatient (CLI) | payer OTHER, SELFPAY ==
[2022-03-18 11:49] LABS: Absolute Lymphocyte Count 1.72 X10^3/uL (0.83-4.51); Basophil# 0.08 X10^3/uL; Eosinophil# 0.21 X10^3/uL; Eosinophils% 2.7 % (0-5); Hematocrit 41.1 % (37-47); Hemoglobin 13.3 g/dL (12.0-15.0); Lymphocyte # 1.72 X10^3/ul (0.83-4.51); Lymphocyte % 22.3 % (19-41); Mean Corp Hgb Conc 32.4 g/dL (32-36); Mean Corpuscular Hgb 28.7 pg (27.0-32.0); Mean Corpuscular Volume 88.8 fL (81-99); Mean Platelet Vol. 9.7 fl (6.2-12.0); Monocyte# 0.54 X10^3/uL; NRBC Flagged by Analyzer 0.3 % (0-5); Neutrophil # 4.98 X10^3/uL (2.7-7.7); Neutrophil % 64.8 % (47-70); Platelet Count 294 K/mm3 (150-450); RBC Distribution Width CV 13.4 % (11.6-14.6); RBC Distribution Width SD 43.4 fl (35.1-43.9); Red Blood Count 4.63 M/mm3 (4.2-5.4); White Blood Count 7.7 K/mm3 (4.4-11.0)
[2022-03-18 12:16] LABS: ALB/GLOB Ratio 1.1 RATIO (0.9-2.4); AST(SGOT) 43 U/L (15-37); Alanine Aminotransfer ALT/SGPT 107 U/L (13-56); Albumin, Serum 3.5 g/dL (3.2-5.0); Alkaline Phosphatase 123 U/L (45-117); Anion Gap 7 (5-15); BUN 16 mg/dL (7-18); BUN/Creat Ratio 24.9 RATIO (10-20); Calcium,Total 9.2 mg/dL (8.5-10.1); Chloride 107 mmol/L (98-107); Cholesterol 169 mg/dL (200); Creatinine, Serum 0.64 mg/dL (0.55-1.02); EST Glomerular Filtration Rate 111 mL/min (>60); Est Glom Filt Rate - Afr Amer 134 mL/min (>60); Globulin 3.2 g/dL (2.2-4.2); Glucose 85 mg/dL (74-106); High Density Lipoprotein 52 mg/dL; Potassium 4.5 mmol/L (3.5-5.1); Protein, Total 6.7 g/dL (6.4-8.2); Sodium Level 138 mmol/L (136-145); Thyroid Stim Hormone (TSH) 1.27 uIU/mL (0.358-3.74); Triglycerides 163 mg/dL; Very Low Density Lipoprotein 33 mg/dL (5-40)
[2022-03-18 15:02] LABS: Hepatitis C Antibody Preliminary Reactive (Nonreactive)
[2022-03-18 15:03] LABS: Hepatitis B Surface Antigen Non-Reactive (Nonreactive)
[2022-03-22 12:09] LABS: HCV Quant. RNA PCR 327000 IU/mL (.)
[2022-03-22 15:13] LABS: HCV log 10 5.515 (.)
== END | disposition home or self-care (01) ==
PROVIDERS: PCP Nurse Practitioner Family; Referring Provider Nurse Practitioner Family; Visit Provider Nurse Practitioner Family
DX: Z00.00 Encounter for general adult medical examination without abnormal findings (principal); F41.9 Anxiety disorder, unspecified; F32.A Depression, unspecified; R79.89 Other specified abnormal findings of blood chemistry; B19.20 Unspecified viral hepatitis C without hepatic coma
CPT/HCPCS: 36415; 80053; 80061; 84443; 85025; 86803; 87340; 87522

== ENCOUNTER → 2022-03-28 | Outpatient (CLI) | payer OTHER, SELFPAY ==
--- NOTE | 2022-03-28 10:01 | US_ITS ---
STUDY: ABDOMINAL ULTRASOUND - RIGHT UPPER QUADRANT REASON FOR VISIT: Female, 37 years old elevated lfts TECHNIQUE: Ultrasound evaluation of the right upper quadrant was performed with real-time and static lopez-scale imaging. TECHNICAL QUALITY: Adequate. COMPARISON: Abdomen ultrasound from 01/28/2021. CT abdomen/pelvis study from 01/27/2021. FINDINGS: Liver: The liver measures 19.6 cm. There is increased echogenicity consistent with fatty infiltration. The bile ducts are within normal limits. The direction of portal flow is hepatopetal. There is a 1.4 x 1.3 x 1.1 cm hyperechoic lesion in the left hepatic lobe, previously measuring 1.0 x 1.3 x 1.2 cm and stable given difference in technique. Gallbladder: Normal distended gallbladder. The gallbladder wall measures 2.0 mm. There is a negative sonographic Watts''s sign. There is no pericholecystic fluid. There are no gallstones. Common Bile Duct (C.B.D.): The common bile duct measures 4.5 mm. Pancreas: Visualized pancreas is unremarkable. Right Kidney: Normal size of the right kidney. The right kidney measures 11.5 x 5.3 x 5.4 cm. Normal renal cortex. The right cortex measures 1.8 cm. There is no demonstrated renal mass or cyst. There is no right hydronephrosis. US/Liver IMPRESSION: 1. Diffuse hepatic steatosis and hepatomegaly. 2. Stable left hepatic lobe hemangioma. Electronically Signed: Dusty Domingo, at 11:38 EST ,
== END | disposition home or self-care (01) ==
PROVIDERS: PCP Nurse Practitioner Family; Referring Provider Nurse Practitioner Family; Visit Provider Nurse Practitioner Family
DX: R79.89 Other specified abnormal findings of blood chemistry (principal)
CPT/HCPCS: 76705

== ENCOUNTER 2022-06-09 09:47 | Emergency (ER) | payer OTHER, SELFPAY ==
[2022-06-09 09:47] VITALS: BP 152/69; PULSE 99; RESP 16; TEMP 36.6; O2SAT 99; BMI 35.6
--- NOTE | 2022-06-09 09:59 | ED.VIS.LOWEX ---
HPI History of Present Illness Chief Complaint: Lower Extremity Injury Informant: patient Narrative Narrative: Presents by private vehicle mechanical fall yesterday evening on hardware floor. She states somehow her leg slipped and twisted. No head injuries. Had significant pain yesterday causing nausea. No current nausea. Unable to bear weight today. No head injuries. No loss of consciousness. No allergies. Denies history of gastric ulcers or kidney injury. No medications taken. Denies history of fractures. Prior similar symptoms: No PFSH PFSH Medical History (Updated 06/09/22 @ 11:[address] Hayden Cyr DO) Alcohol consumption binge drinking Anxiety Anxiety Anxiety and depression Depression Fracture of posterior malleolus of right tibia Hepatitis C Herpes Marijuana abuse Orthostatic hypotension PTSD (post-traumatic stress disorder) Home Medications etonogestrel 68 mg subdermal implant (Nexplanon) 68 mg subdermal . control 01/27/21 [History Last Taken Unknown] medical canabis PO 02/19/21 [History Last Taken Unknown] escitalopram oxalate 20 mg tablet 20 mg PO DAILY #90 tabs 09/30/21 [Rx Last Taken Unknown] amoxicillin 500 mg capsule 500 mg PO TID 03/18/22 [History Last Taken Unknown] bupropion HCl 150 mg tablet,12 hr sustained-release (Wellbutrin SR) 150 mg PO BID #60 ea 03/18/22 [Rx Last Taken Unknown] ibuprofen 800 mg tablet 800 mg PO Q8H PRN pain #60 tabs 03/18/22 [Rx Last Taken Unknown] docusate sodium 100 mg capsule (DOK) 100 mg PO BID #60 CAPSULES 06/09/22 [Rx Last Taken Unknown] hydrocodone-acetaminophen 5-325mg 5mg-325mg 1 tab PO Q6H PRN PRN Pain 7 days #30 TABLETS 06/09/22 [Rx Last Taken Unknown] ibuprofen 600 mg tablet 600 mg PO Q6H PRN PRN pain #30 TABLETS 06/09/22 [Rx Last Taken Unknown] Allergy/AdvReac Type Severity Reaction Status Date / Time No Known Allergies Allergy Verified 06/09/22 09:48 Family History Father Anxiety Surgical History No significant past surgical history Social History household members: children Smoking Status: Never smoker alcohol intake: current alcohol intake frequency: a few times a week substance use type: marijuana what type of physical activity do you participate in: none ROS ROS ED Constitutional Constitutional ED: Denies chills, fever(s) or sweats Eyes Eyes: Denies change in vision ENT ENT ED: Denies dysphagia or sore throat Cardiovascular Cardiovascular: Denies chest pain, leg edema, palpitations or racing heartbeat Respiratory/Chest Respiratory/Chest: Denies cough, dyspnea or dyspnea on exertion Gastrointestinal Gastrointestinal: Denies abdominal pain, diarrhea, nausea or vomiting Genitourinary Genitourinary ED: Denies dysuria, hematuria or urinary frequency Musculoskeletal Musculoskeletal: Reports extremity pain; Denies back pain or neck pain Integumentary Denies rash or wounds Neurologic Neurologic: Denies headache(s), paresthesias or weakness EXAM Physical Exam Const Vital Signs: 06/09/22 09:47 Temperature 97.8 F Temperature Source Temporal Pulse Rate 99 Respiratory Rate 16 Blood Pressure 152/69 H Blood Pressure Mean 96 Pulse Ox 99 Oxygen Delivery Method Room Air Positive well nourished and well developed General Appearance ED: well developed and NAD HEENT Reports moist mucous membranes normocephalic and atraumatic Eyes PERRL, EOMs intact bilaterally and conjunctivae normal General Eye ED: Yes normal appearance of both eyes Neck no lymphadenopathy and supple General: Negative for tenderness Chest Wall Chest: Negative for tenderness Resp normal respiratory effort and normal air movement Effort and Inspection: symmetric chest movement; Negative for respiratory distress Cardio regular rate, regular rhythm and no murmurs Peripheral Pulses: pulses 2+ throughout GI normal to inspection, nondistended, normoactive bowel sounds and non-tender Palpation: Negative for guarding or rebound tenderness present Back/Spine no CVA tenderness and no thoracic nor lumbar tenderness Extremity Extremity Narrative: Right lower extremity negative logroll knee extensor mechanism intact. There is mild tenderness to proximal fibula. There is tenderness to the medial malleolus. There is swelling to the lateral malleolus. There is no deformities. No foot tenderness. Skin intact. Neuro vas intact. General Extremety ED: Negative for edema or tenderness General Extremity: Negative for edema Neuro oriented x3 and no sensory deficits noted Sensorium / Orientation: awake and alert Skin no rashes or lesions noted and no wounds MDM MDM MDM Narrative Medical decision making narrative: Patient right ankle injury, differential sprain versus fracture. With pain medially proximal fibular pain rule out [place]uve fracture. She is treated with ibuprofen and [place], 2 view tib-fib along with three-view right ankle x-rays interpreted by myself read concerns for posterior tib fracture. Did not see a proximal fib fracture ankle mortise appeared to be intact I did add on a stress view of the right ankle also not noted any acute findings. With concerning posterior tib fracture medial malleolus pain and tenderness. I did discuss with on-call orthopedist Dr. Lemos who agrees with treatment as a bimalleolar fracture equivalent. She is placed in splint she will be nonweightbearing. She is provided a walker upon request. Prescription pain medicine for 7 days were written due to being the weekend to help with pain control and having a fracture. Follow-up given as an outpatient. All questions were answered. Procedure note: Verbal consent splinting. Normal sterile conditions. Nylon sleeve placed in the right lower leg, Kerlix dressing extra padding of the ankle region was placed. Initial 5 inch short posterior splint plaster was used additional stirrups 3 inches were used to help with stabilization. Gus wrap to secure. Patient tolerated procedure well. Neurovascularly intact post splinting. Radiography Diagnostic Testing: Clinical Impression(s) from Imaging Studies Ankle X-Ray 06/09/22 10:10 IMPRESSION: Diffuse soft tissue swelling. No fracture is seen. Electronically Signed: Didier Parada MD at 10:55 EST , ADDENDUM: 06/09/22 1111 IMPRESSION: undefined ADDENDUM: 06/09/22 1120 IMPRESSION: undefined Tibia/Fibula X-Ray 06/09/22 10:10 IMPRESSION: Soft tissue swelling. Electronically Signed: Didier Parada MD at 10:56 EST , Ankle X-Ray 06/09/22 10:34 IMPRESSION: Soft tissue swelling. Electronically Signed: Didier Parada MD at 11:05 EST , Discharge Plan Triage Chief Complaint: Lower Extremity Injury ED Provider: Hayden Cyr Dx/Rx/DC Orders Clinical Impression: Closed bimalleolar fracture of right ankle, Fall, Ankle pain, right Instructions: ED Ankle Fracture Prescriptions: New ibuprofen 600 mg tablet 600 mg PO Q6H PRN PRN (Reason: pain) Qty: 30 0RF hydrocodone-acetaminophen [hydrocodone-acetaminophen] 5-325 mg tablet 1 tab PO Q6H PRN PRN (Reason: Pain) 7 Days Qty: 30 0RF docusate sodium [DOK] 100 mg capsule 100 mg PO BID Qty: 60 0RF No Action medical canabis PO amoxicillin 500 mg capsule 500 mg PO TID ibuprofen 800 mg tablet 800 mg PO Q8H PRN (Reason: pain) Qty: 60 1RF Rx Instructions: take with food bupropion HCl [Wellbutrin SR] 150 mg tablet sustained-release 12 hr 150 mg PO BID Qty: 60 1RF Rx Instructions: start daily for the first 3 days then increase to twice daily Nexplanon 68 mg Implant 68 mg SUBDERMAL . Rx Instructions: good for 3 years, placed 2018 escitalopram oxalate 20 mg tablet 20 mg PO DAILY Qty: 90 3RF Primary Care Provider: Benigno Lord NP Referrals: Alec Lemos MD [Med Staff - Active Staff] - 3-5 Days Benigno Lord NP, BIOLOGY SPECIMEN TECHNICIAN-C [Primary Care Provider] - Activity Restrictions/Additional Instructions: Nonweightbearing to the right lower extremity. Use walker. Follow-up with Dr. Lemos. Disposition Disposition: Home, Self Care Discharge Date/Time: 06/09/22 12:15
[2022-06-09] MEDS: Ibuprofen 600 MG Tablet PO (10:06)
[2022-06-09] MEDS: HYDROcodone Bitartrate/Apap 5/325 Tablet PO (10:06)
--- NOTE | 2022-06-09 10:10 | RAD_ITS ---
STUDY: X-RAY - RIGHT TIBIA AND FIBULA REASON FOR EXAM: Female, 37 years old. Pain following injury. TECHNIQUE: 2 view(s) of the tibia and fibula were obtained. COMPARISON: None. FINDINGS: Normal visualized tibia. Normal visualized fibula. Soft tissue swelling. RAD/Tibia & Fibula 2 Views IMPRESSION: Soft tissue swelling. Electronically Signed: Didier Parada MD at 10:56 EST ,
--- NOTE | 2022-06-09 10:10 | RAD_ITS ---
STUDY: X-RAY - RIGHT ANKLE REASON FOR EXAM: Female, 37 years old. Pain and swelling following a twisting injury. TECHNIQUE: 3 view(s) of the ankle. COMPARISON: None. FINDINGS: Normal visualized distal tibia and fibula. Normal medial and lateral malleoli. Normal tibiotalar articulation and ankle mortise. Small plantar spur. The visualized subtalar, talonavicular, calcaneocuboid and tarsal articulations are normal. Diffuse soft tissue swelling. RAD/Ankle min 3 Views IMPRESSION: Diffuse soft tissue swelling. No fracture is seen. Electronically Signed: Didier Parada MD at 10:55 EST ,
--- NOTE | 2022-06-09 10:34 | RAD_ITS ---
STUDY: X-RAY - RIGHT ANKLE REASON FOR EXAM: Female, 37 years old. Injury -- stress view TECHNIQUE: 2 view(s) of the ankle. COMPARISON: Comparison is made with prior study done earlier in the day. FINDINGS: Normal visualized distal tibia and fibula. Normal medial and lateral malleoli. Normal tibiotalar articulation and ankle mortise. Normal visualized talus and calcaneus. The visualized subtalar, talonavicular, calcaneocuboid and tarsal articulations are normal. Soft tissue swelling RAD/Ankle 2 Views IMPRESSION: Soft tissue swelling. Electronically Signed: Didier Parada MD at 11:05 EST ,
--- NOTE | 2022-06-09 10:51 | CON.PCM.OR_ITS ---
HPI Consult Data Date of Consult: 06/09/22 HPI Narrative HPI Narrative: LEYDA OLIVIA, is a 37 F who presents for ankle fracture. Twisted. Called by ED physician. Not asked to see patient in person. FOR[facility]LY [facility] Medical History (Updated 06/09/22 @ 10:53 by Alec Lemos MD) Alcohol consumption binge drinking Anxiety Anxiety Anxiety and depression Depression Fracture of posterior malleolus of right tibia Hepatitis C Herpes Marijuana abuse Orthostatic hypotension PTSD (post-traumatic stress disorder) Home Medications etonogestrel 68 mg subdermal implant (Nexplanon) 68 mg subdermal . control 01/27/21 [History Last Taken Unknown] medical canabis PO 02/19/21 [History Last Taken Unknown] escitalopram oxalate 20 mg tablet 20 mg PO DAILY #90 tabs 09/30/21 [Rx Last Taken Unknown] amoxicillin 500 mg capsule 500 mg PO TID 03/18/22 [History Last Taken Unknown] bupropion HCl 150 mg tablet,12 hr sustained-release (Wellbutrin SR) 150 mg PO BID #60 ea 03/18/22 [Rx Last Taken Unknown] ibuprofen 800 mg tablet 800 mg PO Q8H PRN pain #60 tabs 03/18/22 [Rx Last Taken Unknown] Allergy/AdvReac Type Severity Reaction Status Date / Time No Known Allergies Allergy Verified 06/09/22 09:48 Family History Father Anxiety Surgical History No significant past surgical history Social History household members: children Smoking Status: Never smoker alcohol intake: current alcohol intake frequency: a few times a week substance use type: marijuana what type of physical activity do you participate in: none Vital Signs Vital Signs Vital Signs: 06/09/22 09:47 Temperature 97.8 F Temperature Source Temporal Pulse Rate 99 Respiratory Rate 16 Blood Pressure 152/69 H Blood Pressure Mean 96 Pulse Ox 99 Oxygen Delivery Method Room Air Weight Weight: 220 lb 7.396 oz Body Mass Index (BMI) 35.6 Physical Exam Narrative per ED provider it is closed and NVI ankle and tib fib xrays show small min displaced posterior mal fracture Assessment & Plan Assessment/Plan (1) Fracture of posterior malleolus of right tibia: PLAN: 37 F isolated small posterior mal fracture right ankle. NWB crutches and splint by ED. No acute concerns or need to evaluate in person. Asked for patient to FU within 5 business days. Elevate rest and ice.
== END 2022-06-09 12:15 | disposition home or self-care (01) ==
PROVIDERS: Emergency Provider Emergency Medicine; PCP Nurse Practitioner Family; Visit Provider Emergency Medicine
DX: S82.841A Displaced bimalleolar fracture of right lower leg, initial encounter for closed fracture (principal); W01.0XXA Fall on same level from slipping, tripping and stumbling without subsequent striking against object, initial encounter; X50.1XXA Overexertion from prolonged static or awkward postures, initial encounter; Y92.512 Supermarket, store or market as the place of occurrence of the external cause
CPT/HCPCS: 29515; 73590; 73600; 73610; 99283

== ENCOUNTER 2023-09-27 08:24 | Emergency (ER) | payer OTHER, SELFPAY ==
[2023-09-27 08:24] VITALS: BP 137/81; PULSE 72; RESP 14; O2SAT 99
[2023-09-27 08:25] VITALS: BP 137/81; PULSE 72; RESP 14; TEMP 35.4; O2SAT 99; BMI 38.3
--- NOTE | 2023-09-27 08:37 | EKG12_ITS ---
Test Reason : ABD PAIN Blood Pressure : / mmHG Vent. Rate : 066 BPM Atrial Rate : 066 BPM P-R Int : 130 ms QRS Dur : 086 ms QT Int : 394 ms P-R-T Axes : 018 050 024 degrees QTc Int : 413 ms Normal sinus rhythm Normal ECG Confirmed by Kumar Ryder ([id number]), pictures editor RUSTY NEVAREZ ([id number]) on 09/28/2023 10:39:13 AM Referred By: Confirmed By:Kumar Ryder
--- NOTE | 2023-09-27 08:38 | US_ITS ---
STUDY: RIGHT UPPER QUADRANT ABDOMINAL ULTRASOUND REASON FOR EXAM: Female, 38 years old. Abdominal pain TECHNIQUE: Transabdominal ultrasound was performed with real-time and static lopez scale imaging. TECHNICAL QUALITY: Adequate. COMPARISON: None. FINDINGS: Liver: The liver measures 16.8 cm. There is increased echogenicity consistent with fatty infiltration. The bile ducts are within normal limits. There is hepatic color flow. The direction of portal flow is hepatopetal. There is no demonstrated mass lesion. Gallbladder: Normal distended gallbladder. The gallbladder wall measures 1.8 mm. There is no pericholecystic fluid. There are no gallstones. Common Bile Duct (C.B.D.): The common bile duct measures 2.0 mm. Pancreas: Normal size of the head, body and tail of the pancreas.. There is normal echogenicity of the pancreas. There is no demonstrated pancreatic mass or cyst. Right Kidney: Normal size of the right kidney. The right kidney measures 11.5 x 5.8 x 4.6 cm. Normal renal cortex. There is no demonstrated renal mass or cyst. There is no right hydronephrosis. There is no ascites. US/Gallbladder IMPRESSION: 1. Benign fatty infiltration of the liver Electronically Signed: Edilberto Rodriguez MD at 10:01 EDT ,
--- NOTE | 2023-09-27 08:41 | EDS_ITS ---
HPI HPI - GI History of Present Illness Chief Complaint: Abd Pain Informant: patient Narrative Narrative: Patient is a 38-year-old female with history of hepatitis C as well as binge drinking/alcohol abuse presenting with right upper quadrant abdominal pain. Patient states she is worried her liver is inflamed. She notes that she drinks about once a week but when she does drink she drinks around 20 shots. She states last night she binge drink and had a bottle of tequila as well as 9 shots of fireball. She notes normally in the morning she will be fine to go to work however this morning she had pain in her liver area was concerned. She voices that she knows she needs to quit drinking but has a hard time coping since the loss of her mother and grandmother from COVID. She has previously seen infectious disease but does not undergone treatment for hepatitis due to cost and the fact that she needs stop drinking. She describes the pain as sharp that radiates to her whole abdomen but is more localized in her right upper quadrant. Denies any history of any abdominal surgeries. Has some associated nausea but no vomiting. Did have an episode of diarrhea today but denies any obvious black or blood in it. She notes that she has chronic chest pain and shortness of breath is also had unintentional weight loss but attributes some of that to her anxiety. Denies any swelling of her legs. Currently is not reporting any chest pain or difficulty breathing. Denies any fever or chills. Denies any urinary symptoms. No other complaints at this time. [facility] Medical History Alcohol dependence Fracture of posterior malleolus of right tibia Fracture of posterior malleolus of right tibia Hepatitis C Anxiety and depression Orthostatic hypotension Anxiety Herpes Alcohol consumption binge drinking Marijuana abuse Depression Anxiety PTSD (post-traumatic stress disorder) Home Medications ?Medication ?Instructions ?Recorded ?Last Taken ?Type etonogestrel 68 mg subdermal 68 mg subdermal . control 01/27/21 Unknown History implant (Nexplanon) medical canabis PO 02/19/21 Unknown History escitalopram oxalate 20 mg tablet 20 mg PO DAILY #90 tabs 10/25/22 Unknown Rx esomeprazole magnesium 40 mg 40 mg PO DAILY #14 caps 09/27/23 Unknown Rx capsule,delayed release (Nexium) Allergy/AdvReac Type Severity Reaction Status Date / Time No Known Allergies Allergy Verified 09/27/23 08:24 Family History Father Anxiety Surgical History No significant past surgical history Social History household members: children Smoking Status: Current some day smoker tobacco type: cigarettes alcohol intake: current alcohol intake frequency: a few times a week substance use type: marijuana what type of physical activity do you participate in: none ROS ROS ED Constitutional Constitutional ED: Denies chills or fever(s) Cardiovascular Cardiovascular: Reports chest pain Respiratory/Chest Respiratory/Chest: Reports dyspnea Gastrointestinal Gastrointestinal: Reports abdominal pain, diarrhea and nausea; Denies melena or vomiting Genitourinary Genitourinary ED: Denies dysuria or hematuria Musculoskeletal Musculoskeletal: Denies arthralgias or myalgias Integumentary Denies rash Neurologic Neurologic: Denies headache(s) Psychiatric Psychiatric: Reports anxiety EXAM Physical Exam Const Vital Signs: 09/27/23 08:24 09/27/23 08:25 09/27/23 10:37 Temperature 95.8 F L 98.7 F Temperature Source Temporal Pulse Rate 72 72 68 Respiratory Rate 14 14 18 Blood Pressure 137/81 H 137/81 H 124/68 H Blood Pressure Mean 99 99 86 Pulse Ox 99 99 98 Oxygen Delivery Method Room Air Room Air Positive well nourished and well developed General Appearance ED: well developed; Negative for pallor HEENT Reports moist mucous membranes Eyes PERRL Neck supple Resp normal respiratory effort and clear to auscultation bilaterally Cardio regular rate and regular rhythm GI non-distended GI Narrative: No fluid wave appreciated. Mild tenderness to palpation over the lateral edge of the liver. Negative Watts sign. Inspection: Negative for abdominal distention Auscultation: hypoactive bowel sounds Palpation: soft; Negative for guarding or rigid Extremity full ROM General Extremety ED: Negative for edema General Extremity: Negative for edema Neuro Sensorium / Orientation: alert, oriented to person, oriented to place and oriented to time Motor Exam: Negative for general weakness Psych mental status grossly normal Skin General Skin Exam: Negative for jaundice or pallor MDM MDM MDM Narrative Medical decision making narrative: Patient is evaluated for right upper quad abdominal pain setting of alcohol abuse and known hepatitis. She still has her gallbladder. She did drink last night. Differential includes was not limited to acute hepatitis, cholecystitis, pancreatitis, gastritis and colitis. Patient is nontoxic-appearing. She is acting appropriate. I will obtain belly labs, urinalysis, right upper quadrant ultrasound and a screen EKG she has been reporting some chest pain and shortness of breath. Her breath sounds are clear and I do not think requires a chest x-ray at this time. Clinically she does not have findings consistent with fluid overload/heart failure. Patient was given IV fluids, Zofran and Toradol in the emergency room and will reevaluate. Lab work largely unremarkable. Patient does not have a leukocytosis and I will suspicion for acute infectious etiology. She does have a mild elevation of AST and ALT however this appears to be near her baseline. This is consistent with her hepatitis chronically. Does not have findings concerning for acute liver failure and her platelets are normal at this time. Right upper quadrant u ltrasound shows benign fatty infiltration of the liver but no findings cyst with acute cholecystitis. Her lipase is normal and I do not suspect pancreatitis. Social determinants of health?patient was evaluated by case management and given outpatient resources for alcohol cessation. Patient be discharged home. Is given outpatient follow-up back to infectious ease as well as GI for her chronic hepatitis. Again is counseled at length on the importance of alcohol cessation especially if she wants treatment for her hepatitis C. Given return precautions the ER. Will be started on an antacid given her upper abdominal pain in the setting of binge drinking. Discharged home in stable condition. Given a work note per her request. Lab Data Attestation: I reviewed the patient's lab results. Labs: Laboratory Results - last 24 hr 09/27/23 08:50 WBC 8.9 RBC 4.81 Hgb 13.5 Hct 41.4 MCV 86.1 MCH 28.1 MCHC 32.6 RDW Std Deviation 45.3 H RDW Coeff of Davis 14.5 Plt Count 286 MPV 9.6 Immature Gran % (Auto) 1.100 H Neut % (Auto) 67.9 Lymph % (Auto) 21.9 Luna % (Auto) 6.9 Eos % (Auto) 1.5 Baso % (Auto) 0.7 Absolute Neuts (auto) 6.0 Absolute Lymphs (auto) 1.94 Nucleated RBC % 0 Sodium 137 Potassium 3.7 Chloride 108 H Carbon Dioxide 22.0 Anion Gap 7 BUN 11 Creatinine 0.66 Estim Creat Clear Calc 145.04 Est GFR (MDRD) Af Amer 129 Est GFR (MDRD) Non-Af 107 BUN/Creatinine Ratio 16.7 Glucose 95 Calcium 8.6 Total Bilirubin 0.80 Direct Bilirubin 0.11 AST 66 H ALT 119 H Alkaline Phosphatase 105 Total Protein 7.0 Albumin 3.6 Globulin 3.4 Lipase 38 Urine Color Yellow Urine Clarity Clear Urine pH 8.0 Ur Specific [place] 1.010 Urine Protein Negative Urine Glucose (UA) Normal Urine Ketones Negative Urine Occult Blood Negative Urine Nitrite Negative Urine Bilirubin Negative Urine Urobilinogen Normal Ur Leukocyte Esterase 25 H Urine RBC 0 SEEN Urine WBC 0 SEEN Ur Squamous Epith Cells 0-5 SEEN Urine Bacteria 0 SEEN Urine Mucus 0 SEEN Urine Test Negative Radiography Diagnostic Testing: Clinical Impression(s) from Imaging Studies Gallbladder Ultrasound 09/27/23 08:38 IMPRESSION: 1. 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 Rx Instructions: good for 3 years, placed 2018 escitalopram oxalate 20 mg tablet 20 mg PO DAILY Qty: 90 3RF Stand Alone Forms: ED Work / School Excuse Primary Care Provider: Benigno Lord Referrals: Henrry Laird DO [Med Staff - Active Staff] - As soon as possible Jeremías Romo MD [Med Staff - Active Staff] - As Needed Benigno Lord, REGIONAL CLINICAL DIRECTOR-C [Primary Care Provider] - Print Language: Irish Disposition Disposition: Home, Self Care Discharge Date/Time: 09/27/23 10:39
[2023-09-27] MEDS: 0.9% Normal Saline (1000mL) 1,000 ML 999 ML IV (08:53)
[2023-09-27] MEDS: Ketorolac 15 MG/ML Vial IV (08:54)
[2023-09-27 08:55] LABS: Bacteria 0 SEEN /hpf (None Seen); Mucous, Urine 0 SEEN /hpf (<or=2+); Red Blood Cells-Urine 0 SEEN /hpf (0-5); White Blood Cells 0 SEEN /hpf (0-5)
[2023-09-27] MEDS: Ondansetron 4 MG/2 ML Vial IV (08:55)
[2023-09-27 08:57] LABS: Absolute Lymphocyte Count 1.94 X10^3/uL (0.83-4.51); Basophil# 0.06 X10^3/uL; Basophil% 0.7 % (0-1); Eosinophil# 0.13 X10^3/uL; Eosinophils% 1.5 % (0-5); Hematocrit 41.4 % (37-47); Hemoglobin 13.5 g/dL (12.0-15.0); Lymphocyte # 1.94 X10^3/ul (0.83-4.51); Lymphocyte % 21.9 % (19-41); Mean Corp Hgb Conc 32.6 g/dL (32-36); Mean Corpuscular Hgb 28.1 pg (27.0-32.0); Mean Corpuscular Volume 86.1 fL (81-99); Mean Platelet Vol. 9.6 fl (6.2-12.0); Monocyte# 0.61 X10^3/uL; Monocyte% 6.9 % (0-10); NRBC Flagged by Analyzer 0 % (0-5); Neutrophil # 6.03 X10^3/uL (2.7-7.7); Neutrophil % 67.9 % (47-70); Platelet Count 286 K/mm3 (150-450); RBC Distribution Width CV 14.5 % (11.6-14.6); RBC Distribution Width SD 45.3 fl (35.1-43.9); Red Blood Count 4.81 M/mm3 (4.2-5.4); White Blood Count 8.9 K/mm3 (4.4-11.0)
[2023-09-27 09:01] LABS: Color, Urine Yellow (Yellow); Glucose, Dipstick Normal (Normal); Ketone-Dipstick Negative (Negative); Leukocyte Esterase-Dipstick 25 /ul (Negative); Nitrite-Dipstick Negative (Negative); Occult Blood-Urine Negative /ul (Negative); Protein-Dipstick Negative (Negative); Urine Bilirubin Dipstick Negative (Negative); Urine Clarity Clear (Clear); Urine Urobilinogen Normal (Normal)
[2023-09-27 09:06] LABS: Squamous Epithelial Cells - UA 0-5 SEEN /hpf (5-10)
[2023-09-27 09:07] LABS: Internal QC Validated? YES +Cl - CLEAR BKGD; Pregnancy, Urine Negative Negative
[2023-09-27 09:18] LABS: AST(SGOT) 66 U/L (15-37); Alanine Aminotransfer ALT/SGPT 119 U/L (13-56); Albumin, Serum 3.6 g/dL (3.2-5.0); Alkaline Phosphatase 105 U/L (45-117); Anion Gap 7 (5-15); BUN 11 mg/dL (7-18); BUN/Creat Ratio 16.7 RATIO (10-20); Bilirubin, Direct 0.11 mg/dL (0.00-0.30); Calcium,Total 8.6 mg/dL (8.5-10.1); Chloride 108 mmol/L (98-107); Creatinine, Serum 0.66 mg/dL (0.55-1.02); EST Glomerular Filtration Rate 107 mL/min (>60); Est Glom Filt Rate - Afr Amer 129 mL/min (>60); Estimated Creatinine Clearance 145.04 ml/min; Globulin 3.4 g/dL (2.2-4.2); Glucose 95 mg/dL (74-106); Lipase 38 U/L (13-75); Potassium 3.7 mmol/L (3.5-5.1); Sodium Level 137 mmol/L (136-145)
[2023-09-27 10:37] VITALS: BP 124/68; PULSE 68; RESP 18; TEMP 37.1; O2SAT 98
== END 2023-09-27 10:39 | disposition home or self-care (01) ==
PROVIDERS: Emergency Provider Emergency Medicine; PCP Nurse Practitioner Family; Visit Provider Emergency Medicine
DX: R10.11 Right upper quadrant pain (principal); B18.2 Chronic viral hepatitis C; F10.10 Alcohol abuse, uncomplicated; F41.9 Anxiety disorder, unspecified; R07.9 Chest pain, unspecified; R11.0 Nausea; R06.02 Shortness of breath; K76.0 Fatty (change of) liver, not elsewhere classified; R19.7 Diarrhea, unspecified; Z79.899 Other long term (current) drug therapy; F17.210 Nicotine dependence, cigarettes, uncomplicated
CPT/HCPCS: 76705; 80048; 80076; 81001; 81025; 83690; 85025; 93005; 96361; 96374; 96375; 99282; J7030; J2405

== ENCOUNTER → 2023-11-08 | Outpatient (CLI) | payer OTHER, SELFPAY ==
[2023-11-08 12:27] LABS: Absolute Lymphocyte Count 2.47 X10^3/uL (0.83-4.51); Basophil# 0.06 X10^3/uL; Basophil% 0.7 % (0-1); Eosinophil# 0.14 X10^3/uL; Eosinophils% 1.7 % (0-5); Hemoglobin 13.1 g/dL (12.0-15.0); Lymphocyte # 2.47 X10^3/ul (0.83-4.51); Lymphocyte % 29.8 % (19-41); Mean Corp Hgb Conc 32.8 g/dL (32-36); Mean Corpuscular Hgb 27.9 pg (27.0-32.0); Mean Corpuscular Volume 85.3 fL (81-99); Mean Platelet Vol. 9.5 fl (6.2-12.0); Monocyte# 0.56 X10^3/uL; Monocyte% 6.8 % (0-10); NRBC Flagged by Analyzer 0 % (0-5); Neutrophil # 5.01 X10^3/uL (2.7-7.7); Neutrophil % 60.4 % (47-70); Platelet Count 325 K/mm3 (150-450); RBC Distribution Width CV 13.7 % (11.6-14.6); RBC Distribution Width SD 42.8 fl (35.1-43.9); Red Blood Count 4.69 M/mm3 (4.2-5.4); White Blood Count 8.3 K/mm3 (4.4-11.0)
[2023-11-08 12:51] LABS: Hemoglobin A1c 5.1 % (3.8-5.6)
[2023-11-08 13:28] LABS: AST(SGOT) 49 U/L (15-37); Alanine Aminotransfer ALT/SGPT 94 U/L (13-56); Albumin, Serum 3.5 g/dL (3.2-5.0); Alkaline Phosphatase 114 U/L (45-117); Anion Gap 7 (5-15); BUN 12 mg/dL (7-18); BUN/Creat Ratio 18.3 RATIO (10-20); Calcium,Total 9.2 mg/dL (8.5-10.1); Chloride 109 mmol/L (98-107); Cholesterol 169 mg/dL (200); Creatinine, Serum 0.66 mg/dL (0.55-1.02); EST Glomerular Filtration Rate 108 mL/min (>60); Est Glom Filt Rate - Afr Amer 130 mL/min (>60); Globulin 3.5 g/dL (2.2-4.2); Glucose 88 mg/dL (74-106); High Density Lipoprotein 57 mg/dL; Potassium 3.6 mmol/L (3.5-5.1); Sodium Level 139 mmol/L (136-145); Triglycerides 93 mg/dL; Very Low Density Lipoprotein 19 mg/dL (5-40)
[2023-11-09 15:30] LABS: HIV - WCH Non-Reactive (Nonreactive); Vitamin B12 309 pg/mL (211-911); Vitamin D,25 Hydroxy 18.7 ng/mL
[2023-11-10 13:07] LABS: HCV Quant. RNA PCR 484000 IU/mL (.); HCV log 10 5.685 (.)
== END | disposition home or self-care (01) ==
LOC: VSLAB 12:00
PROVIDERS: PCP Nurse Practitioner Family; Visit Provider Nurse Practitioner Family
DX: B18.2 Chronic viral hepatitis C (principal); F10.988 Alcohol use, unspecified with other alcohol-induced disorder; F41.8 Other specified anxiety disorders
CPT/HCPCS: 36415; 80053; 80061; 82306; 82607; 83036; 84443; 85025; 86703; 87522

== ENCOUNTER 2024-06-24 13:30 | Emergency (ER) | payer OTHER, SELFPAY ==
[2024-06-24 13:31] VITALS: BP 132/88; PULSE 71; RESP 16; TEMP 36.9; O2SAT 100; BMI 32.6
[2024-06-24 16:59] LABS: Absolute Lymphocyte Count 3.01 X10^3/uL (0.83-4.51); Absolute Neutrophil Count 8.7 X10^3/uL (2.0-7.7); Basophil# 0.07 X10^3/uL; Basophil% 0.5 % (0-1); Eosinophil# 0.15 X10^3/uL; Eosinophils% 1.2 % (0-5); Hematocrit 38.1 % (37-47); Hemoglobin 12.3 g/dL (12.0-15.0); Lymphocyte # 3.01 X10^3/ul (0.83-4.51); Lymphocyte % 23.3 % (19-41); Mean Corp Hgb Conc 32.3 g/dL (32-36); Mean Corpuscular Hgb 27.3 pg (27.0-32.0); Mean Corpuscular Volume 84.5 fL (81-99); Mean Platelet Vol. 9.7 fl (6.2-12.0); Monocyte# 0.85 X10^3/uL; Monocyte% 6.6 % (0-10); NRBC Flagged by Analyzer 0 % (0-5); Neutrophil # 8.69 X10^3/uL (2.7-7.7); Neutrophil % 67.4 % (47-70); Platelet Count 267 K/mm3 (150-450); RBC Distribution Width CV 14.9 % (11.6-14.6); RBC Distribution Width SD 45.7 fl (35.1-43.9); Red Blood Count 4.51 M/mm3 (4.2-5.4); White Blood Count 12.9 K/mm3 (4.4-11.0)
[2024-06-24 17:14] LABS: Anion Gap 6 (5-15); BUN 13 mg/dL (7-18); BUN/Creat Ratio 15.9 RATIO (10-20); Calcium,Total 9.2 mg/dL (8.5-10.1); Chloride 107 mmol/L (98-107); Creatinine, Serum 0.82 mg/dL (0.55-1.02); EST Glomerular Filtration Rate 83 mL/min (>60); Est Glom Filt Rate - Afr Amer 100 mL/min (>60); Estimated Creatinine Clearance 106.44 ml/min; Glucose 80 mg/dL (74-106); Potassium 3.7 mmol/L (3.5-5.1); Sodium Level 140 mmol/L (136-145)
[2024-06-24] MEDS: Lidocaine 1% (20 ml mdv) 20 ML Vial INFILT (17:18)
[2024-06-24 17:31] VITALS: PULSE 74; RESP 20; O2SAT 94
--- NOTE | 2024-06-24 19:22 | EX.ED.DYSGE1 ---
HPI History of Present Illness Chief Complaint: Abscess Detail of Chief Complaint: Abscess buttocks Informant: patient Onset/Context/Timing Onset: Weeks (Rash noted 3 weeks ago. Started antiviral 2 weeks ago.) Context: Sudden Onset Timing: Continuous Quality: Patient thought she had a herpes outbreak Location: Right and left buttocks and perineal region Current Severity: Moderate Maximum Severity: Moderate Worsened by: Possibly sitting on bleach . Relieved by: Nothing Associated Symptoms Associated Symptoms: Denies fever or chills. Narrative Narrative: Patient is a 39-year-old woman. She has history of herpes. She thought she had a herpes outbreak 3 weeks ago. She started taking her antiviral 2 weeks ago. She then informed me that she sat on bleach. She has been scratching the area. She denies fever or chills. She denies history rheumatic fever, heart murmur, SBE or mitral valve prolapse. Patient denies history of pilonidal cyst. Patient denies nausea, vomiting or diarrhea. Patient states the rash is not painful. Prior similar symptoms: Yes Recent Illness/Hospitalization: No PFSH PFSH Medical History Alcohol dependence Fracture of posterior malleolus of right tibia Fracture of posterior malleolus of right tibia Hepatitis C Anxiety and depression Orthostatic hypotension Anxiety Herpes Alcohol consumption binge drinking Marijuana abuse Depression Anxiety PTSD (post-traumatic stress disorder) Home Medications ?Medication ?Instructions ?Recorded ?Last Taken ?Type etonogestrel 68 mg subdermal 68 mg subdermal . control 01/27/21 Unknown History implant (Nexplanon) medical canabis PO 02/19/21 Unknown History escitalopram oxalate 20 mg tablet 20 mg PO DAILY #90 tabs 10/25/22 Unknown Rx esomeprazole magnesium 40 mg 40 mg PO DAILY #14 caps 09/27/23 Unknown Rx capsule,delayed release (Nexium) doxycycline monohydrate 100 mg 100 mg PO BID #14 CAPSULES 06/24/24 Unknown Rx capsule Allergy/AdvReac Type Severity Reaction Status Date / Time No Known Allergies Allergy Verified 09/27/23 08:24 Family History Father Anxiety Surgical History No significant past surgical history Social History household members: children Smoking Status: Current some day smoker tobacco type: cigarettes alcohol intake: current alcohol intake frequency: a few times a week substance use type: marijuana what type of physical activity do you participate in: none ROS ROS ED Constitutional Constitutional ED: Reports sweats; Denies chills, fever(s) or subjective Eyes Eyes: Denies blurry vision or change in vision ENT ENT ED: Denies ear pain, rhinorrhea or sore throat Cardiovascular Cardiovascular: Denies chest pain or palpitations Respiratory/Chest Respiratory/Chest: Denies cough, dyspnea or dyspnea on exertion Gastrointestinal Gastrointestinal: Denies abdominal pain, diarrhea, nausea or vomiting Genitourinary Genitourinary ED: Denies dysuria, hematuria or urinary frequency Musculoskeletal Musculoskeletal: Denies arthralgias or myalgias Integumentary Reports abscess and rash Neurologic Neurologic: Denies weakness EXAM Physical Exam Const Vital Signs: 06/24/24 13:31 06/24/24 17:31 Temperature 98.5 F Temperature Source Temporal Pulse Rate 71 74 Respiratory Rate 16 20 H Blood Pressure 132/88 H Blood Pressure Mean 102 Pulse Ox 100 94 Oxygen Delivery Method Room Air Room Air Positive well nourished and well developed Constitutional Narrative: BMI is 32.7. Patient does not appear ill or toxic. General Appearance ED: well developed HEENT Reports moist mucous membranes HEENT Narrative: Head is atraumatic normocephalic. Ears normal. Nares patent. Posterior pharynx is normal Eyes PERRL and EOMs intact bilaterally General Eye ED: Negative for pale conjunctiva or scleral icterus Neck no lymphadenopathy, supple and no JVD Chest Wall inspection of chest normal and palpation of chest normal Resp normal respiratory effort and clear to auscultation bilaterally Cardio regular rate, regular rhythm, S1 normal heart sound, S2 normal heart sound and no murmurs GI normal to inspection, nondistended, normoactive bowel sounds, non-tender, non-distended and no masses GI Narrative: Patient has an abscess left buttocks. There is area of excoriation near the gluteal crease near the anus. This is on the right buttocks predominantly. There are ulcerative lesions which are not painful and are purulent in nature. This raises concern for MRSA. There is 1 area of fluctuance. There is surrounding cellulitis. Back/Spine no CVA tenderness Extremity normal to inspection General Extremety ED: Negative for edema or tenderness General Extremity: Negative for edema Neuro oriented x3 and CN's II-XII intact bilaterally Sensorium / Orientation: alert Psych mental status grossly normal Skin No no rashes or lesions noted, No no wounds and skin turgor normal MDM MDM MDM Narrative Medical decision making narrative: Suspect patient has MRSA with right buttock cellulitis and chemical dermatitis from the bleach as well as left buttocks abscess with cellulitis. Will obtain CBC to assess white count and differential looking for significant white count or bandemia that would necessitate admission IV antibiotics versus outpatient treatment. Also electrolyte panel was obtained to assess glucose, CO2 anion gap and renal function depending on what antibiotic would be required. Lab Data Lab results narrative: White count is elevated 12.9. Basic metabolic panel is unremarkable. Labs: Laboratory Results - last 24 hr 06/24/24 16:13 WBC 12.9 H RBC 4.51 Hgb 12.3 Hct 38.1 MCV 84.5 MCH 27.3 MCHC 32.3 RDW Std Deviation 45.7 H RDW Coeff of Davis 14.9 H Plt Count 267 MPV 9.7 Immature Gran % (Auto) 1.000 H Neut % (Auto) 67.4 Lymph % (Auto) 23.3 [place] % (Auto) 6.6 Eos % (Auto) 1.2 Baso % (Auto) 0.5 Absolute Neuts (auto) 8.7 H Absolute Lymphs (auto) 3.01 Nucleated RBC % 0 Sodium 140 Potassium 3.7 Chloride 107 Carbon Dioxide 27.0 Anion Gap 6 BUN 13 Creatinine 0.82 Estim Creat Clear Calc 106.44 Est GFR (MDRD) Af Amer 100 Est GFR (MDRD) Non-Af 83 BUN/Creatinine Ratio 15.9 Glucose 80 Calcium 9.2 Procedures Other Procedures Procedure(s): Patient was consented for I&D of right buttocks abscess. Procedure was done with commodity specialist in the room. Patient was prepped draped sterile manner. The area anesthetized by local filtration and field block. Incision was made with 10 blade. Blunt dissection was undertaken. There was some purulent material is mostly brown murky blood. Cavity was irrigated. Wick was placed. Patient received first dose of doxycycline in the emergency department. She was instructed to follow-up with her doctor in 48 hours. Discharge Plan Triage Chief Complaint: Abscess ED Provider: Hussein Pope Dx/Rx/DC Orders Clinical Impression: Cellulitis and abscess of buttock, Cellulitis of right buttock, Elevated blood-pressure reading without diagnosis of hypertension, Adult BMI 32.0-32.9 kg/sq m Instructions: ED Abscess Incision And Drainage, ED Cellulitis Prescriptions: New doxycycline monohydrate 100 mg capsule 100 mg PO BID Qty: 14 0RF No Action medical canabis PO Nexplanon 68 mg Implant 68 mg SUBDERMAL . Rx Instructions: good for 3 years, placed 2019 esomeprazole magnesium [Nexium] 40 mg capsule,delayed release(DR/EC) 40 mg PO DAILY Qty: 14 0RF escitalopram oxalate 20 mg tablet 20 mg PO DAILY Qty: 90 3RF Primary Care Provider: Benigno Lord Referrals: Benigno Lord, PLUMBER ASSISTANT-C [Primary Care Provider] - 2 Days for wound check Print Language: French Disposition Disposition: Home, Self Care
[2024-06-24] MEDS: Doxycycline 100 MG CAPSULE PO (19:38)
[2024-06-24 19:41] VITALS: BP 121/86; PULSE 63; RESP 18; TEMP 36.8; O2SAT 96
== END 2024-06-24 19:46 | disposition home or self-care (01) ==
PROVIDERS: Emergency Provider Emergency Medicine; PCP Nurse Practitioner Family; Referring Provider Emergency Medicine; Visit Provider Emergency Medicine
DX: L02.31 Cutaneous abscess of buttock (principal); L03.317 Cellulitis of buttock; R03.0 Elevated blood-pressure reading, without diagnosis of hypertension; F17.210 Nicotine dependence, cigarettes, uncomplicated; Z79.899 Other long term (current) drug therapy
CPT/HCPCS: 10060; 80048; 85025; 99283